=== PATIENT | male | born 1975 | race Caucasian/White ===

== ENCOUNTER 2018-06-09 17:04 | Emergency (ER) | payer BC, SELFPAY ==
[2018-06-09 17:06] VITALS: BP 139/93; PULSE 68; RESP 17; TEMP 36.7; O2SAT 98; BMI 23.3
[2018-06-09] MEDS: Diphth,Pertuss(Acell),Tet Vac 0.5 ML Vial IM (17:13)
--- NOTE | 2018-06-09 17:35 | ED.VISSUMM ---
- ER Visit Summary Date of Service: 06/09/18 Chief Complaint: Left leg laceration History of Present Illness: The patient is a 43 M presents to the emergency department left leg laceration. The patient was out in a 4 [employer]erson. He states 1 of the straps that he was riding with broke and snapped back across his left leg. His leg was bent, and it incised the thigh through his pants. He is unsure of his last tetanus. The patient is otherwise healthy. He denies any weakness or numbness of the leg. He denies any pain in anywhere besides the laceration. Physical Examination: Exam is relatively unremarkable. The patient's extension is preserved. He has a 7 cm full-thickness laceration of the anterior left thigh. It does not communicate with the joint. Extension is preserved. Pulses are normal. There is no large hematoma. Compartments are soft. Test Results: [] Emergency Department Course and Treatment: The area was anesthetized with lidocaine locally. It was cleansed with Shur-Clens and a surgical scrub brush. It was irrigated with 500 cc of normal saline. The wound was explored. It does not violate the fascia. The patient's knee was held in greater than 90? flexion and the fascia is intact. The wound was closed with vertical mattress suture. The patient was placed on prophylactic Keflex and given 2 days of analgesics for pain control. He is comfortable with this plan of care. He was counseled on wound care and reasons to return. Treatment Plan: [] Disposition: Discharge Impression: 1. 7 cm left thigh laceration with repair This note was generated with [employer] dictation software. It may contain incorrect words, spelling, and punctuation that were not noted in review of the chart prior to signing ED Disposition - Plan for ED Patient: Disposition: Acute Care [facility] Chief Complaint: Laceration Instructions: ED Laceration All Prescriptions: Acetaminophen/Codeine #3 [Tylenol#3] 1 tab PO Q6H PRN PRN 3 Days #10 tab PRN Reason: Pain Cephalexin [Keflex] 500 mg PO Q8 #21 cap Referrals: [facility] Doctor,Out of [NON-STAFF] - 10 Day for suture removal
[2018-06-09] MEDS: Cephalexin 250 MG Capsule 500 MG PO (17:45)
[2018-06-09 17:51] VITALS: PULSE 62; RESP 16
== END 2018-06-09 17:55 | disposition short-term general hospital (02) ==
PROVIDERS: Emergency Provider Emergency Medicine
DX: S71.112A Laceration without foreign body, left thigh, initial encounter (principal); W22.8XXA Striking against or struck by other objects, initial encounter; Y93.9 Activity, unspecified; Y92.9 Unspecified place or not applicable
CPT/HCPCS: 12002; 90715; 99283